=== PATIENT | male | born 1995 | race Caucasian/White ===

== ENCOUNTER 2020-03-26 12:23 | Emergency (ER) | payer SELFPAY ==
[2020-03-26 12:35] VITALS: BP 132/78; PULSE 62; RESP 16; TEMP 36.7; O2SAT 100; BMI 28.8
--- NOTE | 2020-03-26 13:24 | ED.HA ---
HPI - Headache General Chief Complaint: Headache Stated Complaint: headache,dental pain Time Seen by Provider: 03/26/20 13:24 Source: patient Mode of arrival: ambulatory Limitations: no limitations History of Present Illness HPI Narrative: toothache left upper that is going into his head MD elicited complaint: headache Onset (ago): day(s) Onset description: gradually Location: left Severity: moderate Quality & Timing: aching Related Data Previous Rx's Medication Instructions Recorded amoxicillin 500 mg PO BID #14 cap 03/26/20 naproxen [Naprosyn] 500 mg PO BID #20 tab 03/26/20 Allergies Allergy/AdvReac Type Severity Reaction Status Date / Time No Known Allergies Allergy Unverified 12/28/19 17:49 [No Known Allergies*] Review of Systems Constitutional: Constitutional: Reports no additional constitutional complaints Eyes: Eyes: Reports no additional eye complaints ENT: Denies dizziness Cardiovascular: Cardiovascular: Reports no additional cardiovascular complaints Respiratory: Respiratory: Reports as per HPI Gastrointestinal: Gastrointestinal: Reports no additional gastrointestinal complaints Musculoskeletal: Musculoskeletal: Reports no additional musculoskeletal complaints Integumentary/Breasts: Skin/Breast: Denies rash Neurologic: Reports system reviewed and no additional complaints, except as documented, Denies dizziness and Denies Sensory deficit (Neuro) Psychiatric: Psychiatric: Denies anxiety [facility] Social History Social History Advance Directives: No Advance Directives Information Provided: No Physical Exam Vital Signs: Vital Signs: Last Vital Signs Temp 98.0 F 03/26/20 12:35 Pulse 62 03/26/20 12:35 Resp 16 03/26/20 12:35 BP 132/78 03/26/20 12:35 Pulse Ox 100 03/26/20 12:35 Body Mass Index 28.8 Const: General: healthy appearing Nutritional Appearance: average body habitus Orientation/consciousness: oriented to person and patient oriented x3 Limitations: no limitations HENMT: Head: Yes normal to inspection Ears: external ears normal General nose exam: Normal external nose present Mouth: Normal oral and palatal mucosa present and oropharynx normal Teeth and gingiva: other (poor dentition with severe dental caries) Throat: Yes posterior oropharynx normal Eyes: General: appearance normal, both eyes and all related structures Neck: Other: supple Neck: Yes normal visual inspection Chest: Chest palpation & inspection: normal inspection of the chest Resp: Auscultation: clear to auscultation bilaterally Cardio: Jugular venous distension: no JVD Rate: regular rate Rhythm: regular rhythm Heart sounds: S1 normal heart sound present and S2 normal heart sound present GI: Inspection: Yes normal to inspection Palpation (GI): Soft to palpation, nontender and No hepatosplenomegaly present Auscultation: normal bowel sounds : General: Yes no CVA tenderness Back/Spine/Pelvis: Back: no CVA tenderness Skin: General skin exam: no rashes or lesions noted Neuro: General: oriented to person and patient oriented x3 Cranial nerves: Yes CN's II-XII intact bilaterally Motor exam (neuro): 5/5 motor strength present throughout Sensory Exam: No Sensory deficit (Neuro) Extrem: General: Yes normal to inspection Psych: Appearance: grossly normal Course Course Course Narrative: Patient with dental caries and infection will dc with follow up for dentist MDM - Headache MDM Narrative Medical decision making narrative: dental caries, dental abscess Differential Diagnosis Differential diagnosis: Likely headache Discharge Plan Discharge Clinical Impression: Dental caries, Chronic dental infection Headache Qualifiers: Headache type: other headache syndrome Qualified Code(s): G44.89 - Other headache syndrome Patient Disposition: Home, Self-Care Instructions: Toothache (ED) Prescriptions: New naproxen [Naprosyn] 500 mg tablet 500 mg PO BID Qty: 20 RF: 0 amoxicillin 500 mg capsule 500 mg PO BID Qty: 14 RF: 0
[2020-03-26] MEDS: Ketorolac Tromethamine 60 MG/2 ML VIAL IM (14:18)
[2020-03-26] MEDS: Amoxicillin 500 MG CAPSULE PO (14:18)
== END 2020-03-26 14:23 | disposition home or self-care (01) ==
PROVIDERS: Emergency Provider Emergency Medicine
DX: K02.9 Dental caries, unspecified (principal); G44.89 Other headache syndrome
CPT/HCPCS: 96372; 99283; 99284; J1885

== ENCOUNTER 2020-04-06 12:17 | Emergency (ER) | payer OTHER, SELFPAY ==
[2020-04-06 12:42] VITALS: BP 127/57; PULSE 85; RESP 16; TEMP 36.6; O2SAT 99; BMI 28.8
--- NOTE | 2020-04-06 12:49 | ED_ITS ---
HPI - General Adult General Chief complaint: General Medical Stated complaint: covid exposure Time Seen by Provider: 04/06/20 12:39 Source: patient Mode of arrival: ambulatory Limitations: no limitations History of Present Illness HPI narrative: With family member on [address] [place] they called him today told him that they tested positive for COVID he came for COVID past reports that he has slight runny nose otherwise no other symptoms. Here with multiple other family members. Associated symptoms: denies other symptoms Treatments prior to arrival: none Related Data Previous Rx's Medication Instructions Recorded amoxicillin 500 mg PO BID #14 cap 03/26/20 naproxen [Naprosyn] 500 mg PO BID #20 tab 03/26/20 Allergies Allergy/AdvReac Type Severity Reaction Status Date / Time No Known Allergies Allergy Unverified 12/28/19 17:49 [No Known Allergies*] Review of Systems Review of Systems: Constitutional: No Weight loss, No Fever, No Chills, No Night Sweats, No Fatigue, No Malaise ENT/Mouth: No Hearing loss, No Ear Pain, + Nasal Congestion, No Sinus Pain, No Hoarseness, No sore throat, + Rhinorrhea, No Swallowing Difficulty Eyes: No Eye Pain, No Swelling, No Redness, No Foreign Body, No Discharge, No Vision Changes Cardiovascular: No Chest Pain, No SOB, No Dyspnea on Exertion, No Orthopnea, No Edema, No Palpitations Respiratory: No Cough, No Sputum, No Wheezing, No Smoke Exposure, No Dyspnea Gastrointestinal: No Nausea, No Vomiting, No Diarrhea, No Constipation, No abdominal Pain, No Hematochezia, No Melena Genitourinary: no irregular bleeding, No Dysuria, No Urinary Frequency, No Hematuria, No Urinary Incontinence, No Urgency, No Flank Pain, No Urinary Flow Changes Musculoskeletal: No joint pain, No Myalgias, No Joint Swelling Skin: No Skin Lesions, No rash Neuro: No Weakness, No Numbness, No Paresthesias, No Loss of Consciousness, No Dizziness, No Headache Psych: No Social Issues Heme/Lymph: No Bruising, No Bleeding,No Lymphadenopathy Endocrine: No Polyuria, No Polydipsia, No Temperature Intolerance Yes all other systems are reviewed and are negative [facility] Past Medical History Medical History (Updated 04/06/20 @ 12:52 by Flakito Dodd NP) No known health problems Social History Social History Advance Directives: No Advance Directives Information Provided: No Physical Exam Vital Signs: Vital Signs: Last Vital Signs Temp 98 F 04/06/20 12:42 Pulse 85 04/06/20 12:42 Resp 16 04/06/20 12:42 BP 127/57 L 04/06/20 12:42 Pulse Ox 99 04/06/20 12:42 Body Mass Index 28.8 Reviewed Const: General: cooperative and healthy appearing; No acute distress or intoxicated appearing Nutritional Appearance: average body habitus Orientation/consciousness: patient oriented x3 HENMT: Head: Yes normal to inspection Ears: hearing grossly normal bilaterally Eyes: General: appearance normal, both eyes and all related structures Visual Napier: normal visual napier by confrontation Neck: Neck: Yes normal visual inspection and No tender Thyroid: Thyroid normal Chest: Chest palpation & inspection: normal inspection of the chest Resp: Effort & Inspection: normal respiratory effort Cardio: Jugular venous distension: no JVD Rhythm: regular rhythm Heart sounds: S1 normal heart sound present and S2 normal heart sound present : General: Yes no CVA tenderness Back/Spine/Pelvis: Back: no CVA tenderness Skin: General skin exam: no rashes or lesions noted Neuro: General: patient oriented x3 Extrem: General: Yes normal to inspection Course Course Course Narrative: COVID swab done. CBC/state precautions provided, return follow-up instructions provided. Stable for discharge. Discharge Plan Discharge Clinical Impression: Upper respiratory infection Patient Disposition: Home, Self-Care Additional Instructions: Based on your symptoms and history we have sent a COVID-19. Although your RESULT IS PENDING at this time. RESULTS should return within 72 hours. At this time you will be contacted with either NEGATIVE OR POSITIVE results. -Please wait until we contact you for your results. At this time you will be okay for discharge. Please plan for self quarantine for up to 14 days. Do not expose yourself to others. You may not go to work. If testing does come back negative you may return to activities as long as you are no longer having any symptoms for at least 3 days. Please continue to follow cold instructions and wash your hands frequently. You may take Tylenol as directed on the bottle for pain or fever. Patient seen in the emergency department and should be excused from work until negative test results AND until 72 hours without any symptoms AND at least 10 days have passed since symptoms first appeared or since last exposure to COVID- 19 positive patient CDC Guidelines for home isolation: - Stay away from others - WEAR A MASK if you are sick AND STAY HOME - Cover your mouth and nose with a tissue when you cough or sneeze. Dispose of tissues in a lined trash can and wash your hands immediately with soap and water for at least 20 seconds. If soap and water are not available, clean hands with alcohol-based hand tube puller that contains at least 60% alcohol. - Clean your hands often with soap and water for at least 20 seconds - Avoid touching your eyes, nose and mouth with unwashed hands - Do not share dishes, drinking glasses, cups, eating utensils, towels, or bedding with other people in your home. After using these items, wash them thoroughly with soap and water or put in the forensic identification specialist. - Clean high-touch surfaces in your isolation area ( sick room and bathroom) every day; let a caregiver clean and disinfect high-touch surfaces in other areas of the home. Clean the area or item with soap and water or another detergent if it is dirty. Then, use a household disinfectant. - Limit contact with pets and animals: If you must care for a pet, wash your hands before and after interacting with them Prescriptions: No Action naproxen [Naprosyn] 500 mg tablet 500 mg PO BID Qty: 20 RF: 0 amoxicillin 500 mg capsule 500 mg PO BID Qty: 14 RF: 0 Referrals: [facility] [Primary Care Provider] - 1 week (Phone visit)
== END 2020-04-06 13:02 | disposition home or self-care (01) ==
PROVIDERS: Nurse Practitioner Primary Care; Emergency Provider Emergency Medicine Emergency Medical Services
DX: U07.1 COVID-19 (principal)
CPT/HCPCS: 99283; U0003

== ENCOUNTER 2020-06-26 11:33 | Outpatient (REF) | payer OTHER, SELFPAY | END 2020-06-26 11:34 | disposition home or self-care (01) | LOC: HO.LAB 11:33 | PROVIDERS: Visit Provider Internal Medicine | DX: Z20.822 Contact with and (suspected) exposure to COVID-19 (principal) | CPT/HCPCS: 36415; C9803; U0003; U0005 ==

== ENCOUNTER 2020-07-25 17:07 | Emergency (ER) | payer OTHER, SELFPAY ==
[2020-07-25 17:38] VITALS: BP 108/60; PULSE 62; RESP 18; TEMP 36.8; O2SAT 98; BMI 35.9
[2020-07-25 18:49] LABS: Glucose Urine UA NEG (NEG); Leukocyte Esterase Urine NEG (NEG); Nitrite Urine NEG (NEG); PH 7.5 (5.0-8.0); Specific Gravity - Urine 1.015 (1.005-1.025); Urine Blood NEG (NEG); Urine Ketones 5 MG/DL (NEG); Urine Protein NEG (NEG-TRACE)
[2020-07-25 18:50] LABS: Appearance Urine CLEAR; Color Urine YELLOW
--- NOTE | 2020-07-25 19:56 | ED.MALEGU ---
HPI - Male Genitourinary General Chief complaint: Urogenital-Male Stated complaint: ?uti Time Seen by Provider: 07/25/20 19:56 Source: patient Mode of arrival: ambulatory Limitations: no limitations History of Present Illness HPI Narrative: States burning-like discomfort to the tip of the penis for past several days No testicular pain, penile discharge Onset (ago): day(s) Duration: intermittent Location: penis Severity: mild Relieving factors: none Exacerbating factors: none Associated symptoms: Reports denies other symptoms Related Data Previous Rx's Medication Instructions Recorded amoxicillin 500 mg PO BID #14 cap 03/26/20 naproxen [Naprosyn] 500 mg PO BID #20 tab 03/26/20 doxycycline monohydrate 100 mg PO BID 7 Days #14 cap 07/25/20 Allergies Allergy/AdvReac Type Severity Reaction Status Date / Time No Known Allergies Allergy Verified 07/25/20 17:38 [No Known Allergies*] Review of Systems Review of Systems: Constitutional: No Weight loss, No Fever, No Chills, No Night Sweats, No Fatigue, No Malaise ENT/Mouth: No Hearing loss, No Ear Pain, No Nasal Congestion, No Sinus Pain, No Hoarseness, No sore throat, No Rhinorrhea, No Swallowing Difficulty Eyes: No Eye Pain, No Swelling, No Redness, No Foreign Body, No Discharge, No Vision Changes Cardiovascular: No Chest Pain, No SOB, No Dyspnea on Exertion, No Orthopnea, No Edema, No Palpitations Respiratory: No Cough, No Sputum, No Wheezing, No Dyspnea Gastrointestinal: No Nausea, No Vomiting, No Diarrhea, No Constipation, No abdominal Pain, No Hematochezia, No Melena Genitourinary: no irregular bleeding, + Dysuria, No Urinary Frequency, No Hematuria, No Urinary Incontinence, No Urgency, No Flank Pain, No Urinary Flow Changes, No Hesitancy Musculoskeletal: No joint pain, No Myalgias, No Joint Swelling Skin: No Skin Lesions, No rash Neuro: No Weakness, No Numbness, No Paresthesias, No Loss of Consciousness, No Dizziness, No Headache Psych: No Social Issues Heme/Lymph: No Bruising, No Bleeding,No Lymphadenopathy Endocrine: No Polyuria, No Polydipsia, No Temperature Intolerance Yes all other systems are reviewed and are negative PMFSH Past Medical History Medical History No known health problems Social History Social History Smoked in Last 30 Days: No Substance Use Type: Marijuana Advance Directives: No Advance Directives Information Provided: No Physical Exam Vital Signs: Vital Signs: Last Vital Signs Temp 98.3 F 07/25/20 17:38 Pulse 62 07/25/20 17:38 Resp 18 07/25/20 17:38 BP 108/60 07/25/20 17:38 Pulse Ox 98 07/25/20 17:38 Body Mass Index 35.9 Reviewed Const: General: cooperative and healthy appearing; No acute distress or intoxicated appearing Nutritional Appearance: average body habitus Orientation/consciousness: patient oriented x3 HENMT: Head: Yes normal to inspection Ears: hearing grossly normal bilaterally Resp: Effort & Inspection: normal respiratory effort Auscultation: clear to auscultation bilaterally Cardio: Rhythm: regular rhythm Heart sounds: S1 normal heart sound present and S2 normal heart sound present GI: Inspection: Yes normal to inspection Palpation (GI): Soft to palpation Percussion: Yes normal to percussion Auscultation: normal bowel sounds : General: Yes no CVA tenderness Male General Exam: Yes normal external exam Penis: uncircumcised, no condylomata, no ecchymosis, not erythematous, no masses, no nodules, no papules, no pustules, no vesicles and other (Slight irritation to the glans of the penis with very minimal curd like) Back/Spine/Pelvis: Back: no CVA tenderness Skin: General skin exam: no rashes or lesions noted Neuro: General: patient oriented x3 Extrem: General: Yes normal to inspection Course Course Course Narrative: AP is consistent with balanitis he is uncircumcised otherwise no penile lesion no testicular pain he adamantly denies any concern for STI he is okay with empirically getting treated/tested. Educated on proper penile care for uncircumcised males. He will abstain from any sexual activity until he is cleared. Given given 500 mg of ceftriaxone IM with lidocaine and doxy empirically. MDM - Male Genitourinary Lab Data Labs: Lab Results 07/25/20 Range/Units 18:22 Urine Color YELLOW Urine Appearance CLEAR Urine pH 7.5 (5.0-8.0) Ur Specific [place] 1.015 (1.005-1.025) Urine Protein NEG (NEG-TRACE) MG/DL Urine Glucose (UA) NEG (NEG) MG/DL Urine Ketones 5 (NEG) MG/DL Urine Blood NEG (NEG) Urine Nitrite NEG (NEG) Ur Leukocyte Esterase NEG (NEG) Discharge Plan Discharge Clinical Impression: Balanitis Patient Disposition: Home, Self-Care Instructions: [place] (ED) Additional Instructions: Clean the penis every day. Do not use soap or bubble bath or anything that could act as an irritant. After peeing, dry underneath the foreskin gently. Instead of soap, use an emollient (these can be purchased [id number] or online). Take medication as prescribed Return if any concerns or worsening symptoms Follow-up with the [facility] for full panel testing as discussed Thank you Prescriptions: New doxycycline monohydrate 100 mg capsule 100 mg PO BID 7 Days Qty: 14 RF: 0 No Action naproxen [Naprosyn] 500 mg tablet 500 mg PO BID Qty: 20 RF: 0 amoxicillin 500 mg capsule 500 mg PO BID Qty: 14 RF: 0 Referrals: Physician,None [Primary Care Provider] - 2 days ([facility])
[2020-07-25] MEDS: cefTRIAXone sodium 500 MG, Lidocaine HCl 1 % MPF 1 ML IM (20:19)
[2020-07-26 10:03] LABS: CT PCR DETECTED (Not Detect.); NG PCR NOT DETECTED (Not Detect.)
== END 2020-07-25 20:11 | disposition home or self-care (01) ==
PROVIDERS: Nurse Practitioner Primary Care; Emergency Provider Internal Medicine
DX: N48.1 Balanitis (principal); R30.0 Dysuria; R36.9 Urethral discharge, unspecified; F12.90 Cannabis use, unspecified, uncomplicated; Z79.899 Other long term (current) drug therapy; Z20.2 Contact with and (suspected) exposure to infections with a predominantly sexual mode of transmission
CPT/HCPCS: 81003; 87491; 87591; 96372; 99284; J0696

== ENCOUNTER 2021-03-11 11:11 | Outpatient (REF) | payer OTHER, SELFPAY ==
[2021-03-11 11:54] LABS: COVID-19 Test Negative (Negative)
== END 2021-03-11 11:12 | disposition home or self-care (01) ==
LOC: HO.LAB 11:11
PROVIDERS: Visit Provider Internal Medicine
DX: Z20.822 Contact with and (suspected) exposure to COVID-19 (principal)
CPT/HCPCS: 36415; 87635; C9803

== ENCOUNTER 2022-04-10 14:11 | Emergency (ER) | payer MEDICAID, SELFPAY | END 2022-04-10 18:39 | disposition left against medical advice (07) | PROVIDERS: Emergency Provider Emergency Medicine | DX: M54.6 Pain in thoracic spine (principal) ==

== ENCOUNTER 2023-05-11 10:34 | Emergency (ER) | payer MEDICAID, SELFPAY ==
[2023-05-11 10:37] VITALS: BP 112/70; PULSE 81; RESP 19; TEMP 36.6; O2SAT 99; BMI 36.0
[2023-05-11 11:07] LABS: COVID-19 Test Negative (Negative); IDNOW Serial# 08D9AD1C
[2023-05-11 11:08] LABS: IDNOW Serial# 152EDE1D
[2023-05-11 11:09] LABS: Influenza A Positive (Negative); Influenza B2 Negative (Negative)
--- NOTE | 2023-05-11 11:23 | ED.GENADULT ---
HPI - General Adult General Chief complaint: Upper Respiratory Symptoms Stated complaint: headache,fever,cough Time Seen by Provider: 05/11/23 11:23 Source: patient, RN notes reviewed and old records reviewed Mode of arrival: ambulatory Limitations: no limitations History of Present Illness HPI narrative: 27-year-old healthy male presents for evaluation of fevers, chills, body aches. He also complains of a headache. He reports an exposure to a sick contact tested positive for the flu. His vital signs are stable on arrival No other complaints or concerns at this time Related Data Previous Rx's Medication Instructions Recorded amoxicillin 500 mg capsule 500 mg PO BID #14 caps 03/26/20 naproxen 500 mg tablet (Naprosyn) 500 mg PO BID #20 tabs 03/26/20 doxycycline monohydrate 100 mg 100 mg PO BID 7 days #14 caps 07/25/20 capsule oseltamivir 75 mg capsule (Tamiflu) 75 mg PO BID 5 days #10 caps 05/11/23 Allergies Allergy/AdvReac Type Severity Reaction Status Date / Time No Known Allergies Allergy Verified 05/11/23 10:37 [No Known Allergies*] Review of Systems Constitutional: Constitutional: Reports body ache(s), Reports chills, Reports fever(s) and Reports headache(s) ENT: Reports headache(s) and Denies sore throat Cardiovascular: Cardiovascular: Denies chest pain Respiratory: Respiratory: Reports cough Musculoskeletal: Musculoskeletal: Reports back pain Integumentary/Breasts: Skin/Breast: Denies rash Neurologic: Reports headache(s) PMFSH Past Medical History Medical History No known health problems Social History Social History Smoked in Last 30 Days: No Use of substances other than those prescribed or required for medical reasons: Yes Substance Use Type: Marijuana Substance Use Frequency: Daily Advance Directives: No Physical Exam ED Vital Signs: Vital Signs - 24 hr 05/11/23 10:37 Temperature 98 F Pulse Rate 81 Respiratory Rate 19 Blood Pressure 112/70 Pulse Oximetry 99 Oxygen Delivery Method Room Air BMI result Body Mass Index 36.0 Const General: healthy appearing, comfortable, no acute distress, alert and awake Nutritional Appearance: well nourished Orientation/consciousness: patient oriented x3 HENMT Head: Yes normocephalic and Yes atraumatic Eyes Eyelids: Yes eyelids normal Conjunctivae: conjunctivae normal Sclerae: sclerae normal Corneas: corneas normal Pupils: Equal, round and reactive pupils present EOM: EOMs intact bilaterally Neck Neck: Yes full ROM Resp Effort & Inspection: normal respiratory effort, able to speak in complete sentences and not labored Skin General skin exam: no rashes or lesions noted and elasticity normal Neuro General: patient oriented x3 Cranial nerves: Yes Equal, round and reactive pupils present and Yes Bilaterally intact EOM present Cognition (Neuro): normal cognition Extrem Other: Moving all extremities well without any obvious deformities Medical Decision Making Medical Decision Making MDM Narrative: 27-year-old healthy male presents for evaluation of flu-like symptoms. He reports having a positive influenza contact. The patient was swab for influenza and tested positive. His symptoms started yesterday, and therefore he is within the window for Tamiflu treatment. He is stable for discharge at this time Differential Diagnosis Differential Diagnoses: The differential diagnosis associated with the presentation includes Influenza COVID-19 Viral syndrome Upper respiratory infection Bronchitis Pneumonia Lab Data Labs: Lab Results 05/11/23 Range/Units 10:44 COVID-19 ([place]) Negative (Negative) COVID-19 Clin Com See Note Influenza Type A ([place]) Positive A (Negative) Influenza Type B ([place]) Negative (Negative) Influenza A & B Note See Note Discharge Plan Discharge Clinical Impression: Influenza Patient Disposition: Home, Self-Care Instructions: Influenza (ED) Additional Instructions: You tested positive for the flu. Use Motrin/Tylenol for fevers, body aches Take Tamiflu twice daily for 5 days Drink lots of fluids Follow-up your primary doctor Prescriptions: New oseltamivir [Tamiflu] 75 mg capsule 75 mg PO BID 5 Days Qty: 10 0RF No Action naproxen [Naprosyn] 500 mg tablet 500 mg PO BID Qty: 20 0RF amoxicillin 500 mg capsule 500 mg PO BID Qty: 14 0RF doxycycline monohydrate 100 mg capsule 100 mg PO BID 7 Days Qty: 14 0RF Stand Alone Forms: Work/School Release Interventions: ED Discharge Assessment Last Done: 05/11/23 11:33 Discharge Date/Time: 05/11/23 11:27
== END 2023-05-11 11:27 | disposition home or self-care (01) ==
PROVIDERS: Emergency Provider Emergency Medicine Emergency Medical Services
DX: J10.1 Influenza due to other identified influenza virus with other respiratory manifestations (principal); R51.9 Headache, unspecified; R50.9 Fever, unspecified; R05.9 Cough, unspecified; Z79.899 Other long term (current) drug therapy; Z11.52 Encounter for screening for COVID-19
CPT/HCPCS: 87502; 87635; 99283; 99284

== ENCOUNTER 2023-07-24 11:35 | Emergency (ER) | payer MEDICAID, SELFPAY ==
[2023-07-24 11:46] VITALS: BP 129/71; PULSE 92; RESP 16; TEMP 36.7; O2SAT 100; BMI 33.4
--- NOTE | 2023-07-24 11:46 | ED_ITS ---
HPI - General Adult General Chief complaint: Skin/Abscess/Foreign Body Stated complaint: pimple Time Seen by Provider: 07/24/23 12:18 Source: patient Mode of arrival: ambulatory Limitations: no limitations History of Present Illness HPI narrative: Patient is a 28-year-old male presenting to the emergency department with complaint of pain and swelling to right buttock for the past 2 days. He denies any spontaneous drainage. Denies history of same in the past. Denies any fevers, chills, body aches. Has not taken any [id number]-hlg-vwdmmnx medications or done any other treatment. complaint: Abscess Onset (ago): day(s) Location: buttocks and right Quality: aching Associated symptoms: denies other symptoms Treatments prior to arrival: none Related Data Previous Rx's ?Medication ?Instructions ?Recorded amoxicillin 500 mg capsule 500 mg PO BID #14 caps 03/26/20 naproxen 500 mg tablet (Naprosyn) 500 mg PO BID #20 tabs 03/26/20 doxycycline monohydrate 100 mg 100 mg PO BID 7 days #14 caps 07/25/20 capsule oseltamivir 75 mg capsule (Tamiflu) 75 mg PO BID 5 days #10 caps 05/11/23 cephalexin 500 mg capsule 500 mg PO QID #28 caps 07/24/23 Allergies Allergy/AdvReac Type Severity Reaction Status Date / Time No Known Allergies Allergy Verified 07/24/23 11:49 [No Known Allergies*] Review of Systems 2 Review of Systems: As per HPI. Yes all other systems are reviewed and are negative Constitutional: Constitutional: Reports as per HPI [facility] Past Medical History Medical History No known health problems Social History Social History Smoked in Last 30 Days: No Use of substances other than those prescribed or required for medical reasons: Yes Substance Use Type: Marijuana Advance Directives: No Advance Directives Information Provided: No Physical Exam ED Vital Signs: Vital Signs - 24 hr 07/24/23 11:46 Temperature 98.1 F Pulse Rate 92 Respiratory Rate 16 Blood Pressure 129/71 Pulse Oximetry 100 Oxygen Delivery Method Room Air BMI result Body Mass Index 33.4 Vital signs have been reviewed and appear to be correct. Blood pressure normal. Heart rate normal. Respiratory rate normal. Temperature normal. Oxygen saturation normal. Const General: cooperative, healthy appearing and no acute distress Orientation/consciousness: oriented to person, oriented to place, oriented to time and patient oriented x3 Limitations: no limitations HENMT Head: Yes normocephalic and Yes atraumatic Ears: external ears normal General nose exam: Normal external nose present Face and sinus: Yes face symmetric Mouth: oropharynx normal and moist mucous membranes Throat: Yes uvula midline Eyes Pupils: Equal, round and reactive pupils present Neck Neck: Yes normal visual inspection and Yes supple Resp Effort & Inspection: normal respiratory effort and able to speak in complete sentences Auscultation: clear to auscultation bilaterally Cardio Rate: regular rate Rhythm: regular rhythm Heart sounds: S1 normal heart sound present and S2 normal heart sound present GI Palpation (GI): Soft to palpation and nontender Auscultation: normoactive bowel sounds General: Yes no CVA tenderness Back/Spine/Pelvis Back: no CVA tenderness Skin General skin exam: elasticity normal and turgor normal Full body images: 2 1. fluctuant abscess which spontaneously drained during exam Neuro General: oriented to person, oriented to place, oriented to time, patient oriented x3, moves all extremities, no focal motor deficits and CN's II-XI intact bilaterally Cranial nerves: Yes Equal, round and reactive pupils present Cognition (Neuro): normal cognition Extrem General: Yes full ROM, Yes no pedal edema and Yes no calf tenderness Psych Mental Status: mental status grossly normal Affect: normal affect Thought process: Normal thought process present Course Course Course Narrative: This is an RME: Additional HPI, ROS, PE not included below will be deferred to primary provider. This is a [id number]xf[age]-male, with no known medical problems, who presents to the ER with complaints of ?abscess vs pionidal cyst x 2 days. Reporting no fevers. No drainage from the area. No hx of similar symptoms in the past. Tender, fluctuant region on the right gluteal cleft, likely needing I&D Plan: Further ER evaluation needed Medical Decision Making Medical Decision Making MDM Narrative: Patient is a 28-year-old male presenting to the emergency department with complaint of pain and swelling to right buttock for the past 2 days. On exam patient is awake, A+Ox3, VS WNL, afebrile, normal neurological exam without focal deficits, physical exam findings as above. Given reported symptoms and physical exam findings, initial differential includes abscess, pilonidal cyst. Abscess noted to spontaneously drain during exam, moderate amount of purulent drainage removed. Patient instructed to cover the area with dry sterile dressings, perform Sitz baths, Tylenol and ibuprofen for discomfort, assess area daily. Will treat patient with course of Keflex. Will refer patient to surgery for any recurrence of symptoms. Return precautions discussed at bedside. Patient verbalized understanding of and agreement with plan. Differential Diagnosis Differential Diagnoses: The differential diagnosis associated with the presentation includes As per MDM. External Record Review External record reviewed: Inpatient record, Office record and Outpatient record Prescription Management I considered prescription management with: Antibiotic Discharge Plan Discharge Clinical Impression: Abscess of buttock, right Patient Disposition: Home, Self-Care Instructions: Abscess (ED), Abscess Follow-up (ED) Additional Instructions: You were evaluated in the ER for an abscess. Please keep the area surrounding the abscess clean and dry. You were given a prescription for antibiotics, please take the antibiotics as directed for the full course of the medication. We also recommend that you take warm baths with salt water to soak the area. You should perform a skin check of the area daily. If the abscess progresses you may have to have the abscess incised and drained. You can use Tylenol or ibuprofen per package directions as needed for pain. If necessary, you can alternate these medications so that you take one medication every 3 hours. For instance, at noon take ibuprofen, then at 3:00 p.m. take Tylenol, then at 6:00 p.m. take ibuprofen. Please schedule an appointment with your primary care physician as soon as possible for follow-up. Return to the emergency department if you experience fevers greater than 100.4? F, increased in area of redness or swelling, increasing amount of discharge from the area, increased tenderness around the area, or any other concerning symptoms. If the swelling reoccurs, you may need to be evaluated by surgery. Prescriptions: New cephalexin 500 mg capsule 500 mg PO QID Qty: 28 0RF No Action naproxen [Naprosyn] 500 mg tablet 500 mg PO BID Qty: 20 0RF amoxicillin 500 mg capsule 500 mg PO BID Qty: 14 0RF doxycycline monohydrate 100 mg capsule 100 mg PO BID 7 Days Qty: 14 0RF oseltamivir [Tamiflu] 75 mg capsule 75 mg PO BID 5 Days Qty: 10 0RF Referrals: [facility] [Provider Group] Print Language: Turkmen
[2023-07-24 13:34] VITALS: BP 120/60; PULSE 66; RESP 18; TEMP 36.8; O2SAT 98
== END 2023-07-24 13:35 | disposition home or self-care (01) ==
PROVIDERS: Emergency Provider Emergency Medicine Emergency Medical Services
DX: L02.31 Cutaneous abscess of buttock (principal); R23.8 Other skin changes
CPT/HCPCS: 10060; 99283; 99284

== ENCOUNTER 2024-06-24 07:36 | Emergency (ER) | payer MEDICAID, SELFPAY ==
[2024-06-24 07:40] VITALS: BP 126/66; PULSE 85; RESP 18; TEMP 37.1; O2SAT 98; BMI 37.2
--- NOTE | 2024-06-24 08:07 | ED.SKABFB ---
HPI - Skin/Abscess/Foreign Bdy General Chief complaint: Skin/Abscess/Foreign Body Stated complaint: cyst Time Seen by Provider: 06/24/24 07:58 Source: patient Mode of arrival: ambulatory Limitations: no limitations History of Present Illness ED Provider: Ronni Christian PA-C HPI narrative: 28 yo male presents to the ER for evaluation of a recurrent pilonidal cyst. He reports pain and swelling for the last 2 days. the reports tenderness and a bump on the right side in the pilonidal area. no drainage. no fevers. he reports this is his 2nd episode and the 1st time was last summer when he had I&D and was put on abx with resolution. MD complaint: abscess/boil Onset (ago): day(s) (2) Tetanus up to date: yes Location: buttocks Severity: moderate Severity scale (1-10): 5 Quality: aching Pain Consistency: intermittent Relieving factors: rest Exacerbating factors: other (sitting) Context: none Treatments prior to arrival: none Related Data Previous Rx's ?Medication ?Instructions ?Recorded amoxicillin 500 mg capsule 500 mg PO BID #14 caps 03/26/20 naproxen 500 mg tablet (Naprosyn) 500 mg PO BID #20 tabs 03/26/20 doxycycline monohydrate 100 mg 100 mg PO BID 7 days #14 caps 07/25/20 capsule oseltamivir 75 mg capsule (Tamiflu) 75 mg PO BID 5 days #10 caps 05/11/23 cephalexin 500 mg capsule 500 mg PO QID #28 caps 07/24/23 cephalexin 500 mg capsule 500 mg PO Q6H 7 days #28 caps 06/24/24 Allergies Allergy/AdvReac Type Severity Reaction Status Date / Time No Known Allergies Allergy Verified 06/24/24 07:42 [No Known Allergies*] Review of Systems Review of Systems: Yes all other systems are reviewed and are negative PMFSH Past Medical History Medical History No known health problems Social History Social History (System 06/19/24 @ 16:35 by Ashley Gil) Smoked in Last 30 Days: Yes Use of substances other than those prescribed or required for medical reasons: Yes Substance Use Type: Marijuana Substance Use Frequency: Daily Advance Directives: No Advance Directives Information Provided: No Physical Exam Vital Signs: Vital Signs: Last Vital Signs Temp 98.7 F 06/24/24 07:40 Pulse 85 06/24/24 07:40 Resp 18 06/24/24 07:40 BP 126/66 06/24/24 07:40 Pulse Ox 98 06/24/24 07:40 O2 Del Method Room Air 06/24/24 07:40 BMI result Body Mass Index 37.2 Appearance: Alert. Oriented X3. No acute distress. HEENT: normal inspection CVS: Normal heart rate and rhythm. Pulses normal. Respiratory: No respiratory distress. Skin: Skin warm and dry. Normal skin color. Normal skin turgor. gluteal cleft on the right side with a 2cm area of tenderness and fluctuance, mild erythema, no induration Extremities: normal inspection x4, no peripheral edema Neuro: Oriented X 3. grossly normal, non-focal Medications Administered Discontinued Medications Generic Name Dose Route Start Last Admin Trade Name Freq PRN Reason Stop Dose Admin Lidocaine HCl 5 ml 06/24/24 08:21 06/24/24 08:31 Lidocaine Hcl 1 % Mpf 5 Ml Vial SUBCUT 06/24/24 08:22 5 ml ONCE ONE Administration Medical Decision Making Medical Decision Making MDM Narrative: 28 yo male presenting for evaluation of a painful pilonidal cyst for the last 2 days. History of the same last year. Examination consistent with an inflamed pilonidal cyst that is amenable to drainage. Patient tolerated procedure well and a moderate amount of foul-smelling, dark yellow purulent material was expressed. Small amount of iodoform packing was placed. Patient counseled to remove the packing in 2 days. Also advised to follow-up with general surgery for evaluation of possible cyst excision. Will provide antibiotic. Stable for discharge home. Return precautions were discussed. Differential Diagnosis Differential Diagnoses: The differential diagnosis associated with the presentation includes pilonidal cyst, abscess, cellulitis, perirectal abscess External Record Review External record reviewed: Prior outpatient labs Prescription Management I considered prescription management with: Pain Medication and Antibiotic Chronic Conditions Patient?s care impacted by: Other (Recurrent pilonidal cyst, obesity) Procedures Abscess I/D Site: avinash-rectal (pilonidal ) Local Anesthetic: lidocaine 1% Amount of anesthesia used (mL): 1 Technique: incised with blade Sent for culture/gram staining?: No Irrigation: Yes Packing used?: iodoform Critical Care Time Critical Care Time Critical Care Time: No Discharge Plan Discharge Clinical Impression: Pilonidal cyst Patient Disposition: Home, Self-Care Instructions: Pilonidal Cyst (ED), Pilonidal Cyst Excision (DC) Additional Instructions: Take the prescribed antibiotics as directed, complete the entire course and do not miss any doses Remove the packing in 2 days, you can do this at home or come back and we will do it for you Recommend general surgery evaluation in the office for evaluation of excision If you develop new or worsening symptoms call 911 or come back to the ER for further evaluation. Prescriptions: New cephalexin 500 mg capsule 500 mg PO Q6H 7 Days Qty: 28 0RF No Action naproxen [Naprosyn] 500 mg tablet 500 mg PO BID Qty: 20 0RF amoxicillin 500 mg capsule 500 mg PO BID Qty: 14 0RF doxycycline monohydrate 100 mg capsule 100 mg PO BID 7 Days Qty: 14 0RF cephalexin 500 mg capsule 500 mg PO QID Qty: 28 0RF oseltamivir [Tamiflu] 75 mg capsule 75 mg PO BID 5 Days Qty: 10 0RF Referrals: [facility] [place] [facility] [Provider Group] Print Language: Arabic
--- OUTSIDE RECORDS SUMMARY | 2024-06-24 08:11 | XMS_ITS | Clinical Summary ---
Author Organization [facility] Address [address] [place] [address] Care Team Providers Care Judicial Registrar Name Role Phone Dominique Morales NP Primary Care Provider Karly medeiros Encounters Date Type Department Care Team Description 06/23/2024 Population Health Risk Score [facility] (C3) Department [address] [facility][NOTE 3] [address] [place] [id number] Provider, Population Health Generic from Last 3 Months Social History Tobacco Use Types Packs/Day Years Used Date Smoking Tobacco: Never Assessed Sex and Gender Information Value Date Recorded Sex Assigned at Male 02/09/2022 10:35 AM EDT Legal Sex Male 10:35 AM EDT Gender Identity Male 02/09/2022 10:35 AM EDT Sexual Orientation Straight 02/09/2022 10 :35 AM EDT Plan of Treatment Health Maintenance Due Date Last Done Comments Depression Screening 1996 HIV Screening 1996 Alcohol/Substance Use Screening 2008 Tobacco Screening 2008 Family Planning (PISQ) 07/21/2011 Hepatitis C Screening 2014 DTaP/Tdap/Td Vaccines (1 - Tdap) 07/21/2015 Hepatitis B Vaccines (1 of 3 - 19+ 3-dose series) 07/21/2015 COVID-19 Vaccine ( - 2023-2 5 season) 2023 Influenza Vaccine (#1) 2023 Zoster Vaccines (1 of 2) 2046 RSV Patients and Pa tients Aged 60 years or older (1 - 1-dose 75+ series) 07/21/2071 HIB Vaccines Aged Out No longer eligi ble based on patient's age to complete this topic HPV Vaccines Aged Out No longer eligi ble based on patient's age to complete this topic Hepatitis A Vaccines Aged Out No long er eligible based on patient's age to complete this topic IPV Vaccines Aged Out No longer eligi ble based on patient's age to complete this topic Meningococcal Vaccine Aged Out No tiffany alejandro eligible based on patient's age to complete this topic Pneumococcal Vaccine: Pediat rics (0 to 5 Years) and At-Risk Patients (6 to 49) Years) Aged Out No longer eligible b ased on patient's age to complete this topic RSV under 20 months Aged Out No longe r eligible based on patient's age to complete this topic Rotavirus Vaccines Aged Out No longer eligible based on patient's age to complete this topic Care Teams Judicial Registrar Relationship Specialty Start Date End Date Dominique Morales NP PCP - General Family Medicine 02/15/20
--- OUTSIDE RECORDS SUMMARY | 2024-06-24 08:11 | XMS_ITS | Clinical Summary ---
Author Organization [facility] Address [address] [place] [address] Phone Care Team Providers Care Thermal Cutter Helper Name Role Phone Unavailable Primary Care Provider Unavailabl e Immunizations Immunization Administration Dates Next Due DTaP 5 10/19/2002,02/08/1998,01/26/1998 ,1996,1996 Hep B, ped/adol 11/09/1997,1996,1996 Hib (PRP-T) 1996,1996 IPV 10/19/2002,01/26/1998,1996 ,1996 MMR 11/22/2000,02/08/1998,11/09/1997 Varicella 11/09/1997 Social History Tobacco Use Types Packs/Day Years Used Date Smoking Tobacco: Never Assessed Sex and Gender Information Value Date Recorded Sex Assigned at Not on file Legal Sex Male 4:30 PM EDT Gender Identity Not on file Sexual Orientation Not on file Plan of Treatment Health Maintenance Due Date Last Done Comments Varicella Vaccines (2 of 2 - 2-dose childhood series) 12/20/2000 11/09/1997 DTaP,Tdap,and Td Vaccines (5 - Tdap) 07/21/2007 10/19/2002, 02/08/1998, 01/26/1998, Additional history exists Consider Men B Vaccine (1 of 2 - Bexsero 2-dose series) 2012 Influenza Vaccines (#1) 2023 COVID-19 Vaccine ( season) 2023 HIB Vaccines Aged Out 1996, 1996 No lo nger eligible based on patient's age to complete this topic Hepatitis B Vaccines Completed 11/09/1997, 1996, 1996 MMR Vaccines Completed 11/22/2000, 01/12, 11/09/1997 IPV Vaccines Completed 10/19/2002, 01/10, 1996, Additional history exists HPV Vaccines Aged Out No longer eligi ble based on patient's age to complete this topic Hepatitis A Vaccines Aged Out No long er eligible based on patient's age to complete this topic Men B Vaccine Aged Out No longer elig ible based on patient's age to complete this topic Meningococcal Vaccine Aged Out No tiffany alejandro eligible based on patient's age to complete this topic Pneumococcal Vaccine Aged Out No long er eligible based on patient's age to complete this topic
[2024-06-24] MEDS: Lidocaine HCl 1 % MPF 5 ML VIAL SUBCUT (08:31)
[2024-06-24 09:13] VITALS: BP 00/00; PULSE 0; RESP 0; TEMP -17.7; TEMP 0; O2SAT 0
== END 2024-06-24 09:14 | disposition home or self-care (01) ==
PROVIDERS: Emergency Provider Emergency Medicine
DX: L05.91 Pilonidal cyst without abscess (principal); F12.90 Cannabis use, unspecified, uncomplicated
CPT/HCPCS: 10080; 99284; J2003

== ENCOUNTER 2024-10-30 01:21 | Emergency (ER) | payer MEDICAID, SELFPAY ==
[2024-10-30 01:24] VITALS: BP 122/70; PULSE 64; RESP 20; TEMP 36.7; O2SAT 98; BMI 35.9
[2024-10-30 02:12] LABS: Resp Syncy Virus RNA Qual PCR NEGATIVE (Negative); SARS COV2 PCR INHOUSE POSITIVE (Negative)
--- NOTE | 2024-10-30 02:16 | ED_ITS ---
HPI - General Adult General Chief complaint: Nausea/Vomiting/Diarrhea Stated complaint: vomiting Time Seen by Provider: 10/30/24 02:11 Source: patient Mode of arrival: ambulatory Limitations: no limitations History of Present Illness ED Provider: HPI narrative: Patient is presenting with nausea and vomiting from 16:00 today, sudden onset, no abdominal pain no sick contacts no diarrhea, no chest pain or shortness of breath. States it has not been able to eat anything today. Does smoke marijuana has not smoked today. This is not a recurrent issue. Related Data Previous Rx's ?Medication ?Instructions ?Recorded amoxicillin 500 mg capsule 500 mg PO BID #14 caps 03/12 08/29 naproxen 500 mg tablet (Naprosyn) 500 mg PO BID #20 ta bs 03/26/20 doxycycline monohydrate 100 mg 100 mg PO BID 7 days #1 4 caps 07/25/20 capsule oseltamivir 75 mg capsule (Tamiflu) 75 mg PO BID 5 day s #10 caps 05/11/23 cephalexin 500 mg capsule 500 mg PO QID #28 caps 07/23 cephalexin 500 mg capsule 500 mg PO Q6H 7 days #28 cap s 06/24/24 ondansetron 4 mg disintegrating 4 mg PO Q8H PRN nausea and 10/30/24 tablet vomiting #4 tabs Allergies Allergy/AdvReac Type Severity Reaction Status Date / Time No Known Allergies (No Known Allergy Verified 10/30/24 01:26 Allergies*) Review of Systems 2 Constitutional: Constitutional: Reports as per [facility] Past Medical History Medical History No known health problems Social History Social History (System 06/19/24 @ 16:35 by Ashley Gil) Smoked in Last 30 Days: No Use of substances other than those prescribed or required for medical reasons: Yes Substance Use Type: Marijuana Advance Directives: No Advance Directives Information Provided: No Physical Exam ED Vital Signs: Vital Signs - 24 hr 10/30/24 01:24 Temperature 98.0 F Pulse Rate 64 Respiratory Rate 20 Blood Pressure 122/70 Pulse Oximetry 98 Oxygen Delivery Method Room Air BMI result Body Mass Index 35.9 Const Other: * Gen: ?Overall well-appearing patient * HEENT: PERRLA, EOMI, MMM, * Neck: Supple, no LAD * CV: RRR, no obvious murmurs appreciated * Resp: ?No wheezing rales rhonchi no stridor moving air well * Abd: ?Bowel sounds are present, no tenderness no rebound no rigidity * MSK: FROM, strength 5/5 all extremities * Skin: Warm, dry, intact, * Neuro: ?Alert and oriented x3, moving upper and lower extremities symmetrically, no obvious facial asymmetry noted Medications Administered Generic Name Dose Route Start Last Admin Trade Name Freq PRN Reason Stop Dose Admin Sodium Chloride 1,000 mls @ 999 mls/hr 10/30/24 02:30 10/30/24 02:23 Ns IV 10/30/24 03:30 999 mls/hr .Q1H1M [place] Administration Discontinued Medications Generic Name Dose Route Start Last Admin Trade Name Freq PRN Reason Stop Dose Admin Diphenhydramine HCl 25 mg 10/30/24 02:16 10/30/24 02:24 Diphenhydramine Hcl 50 Mg/Ml Vial IVPUSH 10/30/24 02:17 25 mg ONCE ONE Administration Famotidine 20 mg 10/30/24 02:16 10/30/24 02:24 Famotidine/Pf 20 Mg/2 Ml Vial IVPUSH 10/30/24 02:17 20 mg ONCE ONE Administration Ondansetron HCl 4 mg 10/30/24 02:16 10/30/24 02:24 Ondansetron Hcl 4 Mg/2 Ml Vial IVPUSH 10/30/24 02:17 4 mg ONCE ONE Administration Medical Decision Making Medical Decision Making MDM Narrative: Presenting with nausea and vomiting some of the considerations for workup as below, depending on his blood work we will determine whether he needs further imaging such as ultrasound or CT thus far abdominal exam is benign. Differential Diagnosis Differential Diagnoses: The differential diagnosis associated with the presentation includes Cholecystitis, pancreatitis, hepatitis, gastritis, cholangitis, choledocholithiasis, dehydration Admission/Observation Consideration of admission/observation: Escalation of care including admission/observation considered (If patient is dehydrated or any issues such as pancreatitis) 2022 Emergency Medicine Coding Guide from [employer] on 10/30/2024 All calculations should be rechecked by clinician prior to use RESULT SUMMARY: 4 Estimated Level of Service Problems: Moderate (4) Risk: Moderate (4) Data: Minimal (2) NARRATIVE MDM: This patient's problem complexity is Moderate as patient: has a new undiagnosed problem with uncertain prognosis but that could be serious. This patient's risk is Moderate due to: overall presentation requiring evaluation for a potentially Moderate-risk process. This patient's data complexity is Minimal. INPUTS: Number and Complexity ?> 5 = 4: undiagnosed new problem, uncertain outcome (e) Risk level ?> 3 = Moderate Tests ordered ?> 1 = 1 Tests results reviewed (excluding labs) ?> 0 = 0 Prior external notes reviewed ?> 0 = 0 Assessment requiring and independent historian ?> 0 = No Independent interpretation of tests ?> 0 = No Discussed management/test interpretation w/external professional ?> 0 = No Lab Data MDM Lab Attestation statement: I reviewed the patient's lab results. 10/30/24 02:28 10/30/24 02:28 Labs: Lab Results 10/30/24 10/30/24 Range/Units 01:29 02:28 WBC 12.3 H (4.8-10.8) X10*3/uL RBC 4.52 L (4.60-5.80) X10*6/uL Hgb 13.1 L (14.0-18.0) g/dl Hct 38.9 L (42.0-52.0) % MCV 86.1 (80.0-98.0) fL MCH 29.0 (27.0-33.0) pg MCHC 33.7 (31.0-36.0) g/dl RDW 12.7 (11.0-16.0) % Plt Count 285 (160-400) X10*3/uL MPV 8.9 L (9.4-12.4) fL Immature Gran % (Auto) 0.3 (0.0-0.4) % Neut % (Auto) 78.3 H (45-73) % Lymph % (Auto) 14.0 L (20-40) % [place] % (Auto) 7.1 (2-11) % Eos % (Auto) 0.1 (0-4) % Baso % (Auto) 0.2 (0-2) % Lymph # (Auto) 1.7 (1.2-4.9) X10*3/uL [place] # (Auto) 0.9 (0.1-1.2) X10*3/uL Eos # (Auto) 0.0 (0.0-0.4) X10*3/uL Baso # (Auto) 0.0 (0.0-0.2) X10*3/uL Abs Immat Gran (auto) 0.04 H (0.00-0.03) X10*3/uL Absolute Neuts (auto) 9.6 H (2.0-8.3) x10*3/uL Absolute Nucleated RBC 0.000 (0.0-0.012) X10*3/uL Nucleated RBC % (auto) 0.0 (0.0-0.2) /100WBC Sodium 143 (135-145) mmol/L Potassium 3.6 (3.3-5.1) mmol/L Chloride 111 H (96-108) mmol/L Carbon Dioxide 23 (22-29) mmol/L Anion Gap 13 (12-20) BUN 9 (9-16) mg/dL Creatinine 0.71 (0.5-1.4) mg/dL Estim Creat Clear Calc 183.6 Estimated GFR > 60 Random Glucose 148 H (60-115) mg/dL Calcium 9.0 (8.4-10.2) mg/dL Lipase 14 (8-78) U/L Influenza Type A (PCR) NEGATIVE (Negative) Influenza Type B (PCR) NEGATIVE (Negative) RSV RNA Qual (PCR) NEGATIVE (Negative) SARS-CoV-2 RNA (RT-PCR) POSITIVE A (Negative) Discharge Plan Discharge Clinical Impression: COVID Patient Disposition: Home, Self-Care Instructions: COVID-19 (Coronavirus Disease 2019) (ED) Additional Instructions: Your workup was reassuring, but she did test positive for COVID infection, treatment is supportive, stay well hydrated, I will give her Zofran as needed for nausea and vomiting, I do not recommend any other medications for COVID such as Paxlovid as this medication is known for side effects such as nausea and vomiting and this is exactly the symptoms that you were having an UR otherwise healthy, you can take Tylenol 975 mg every 6 hours needed for body aches and fevers and I will give you a work note, make sure to not expose public to your symptoms isolate until your symptoms improve and then for the next 5 days I recommend you wear a mask Prescriptions: New ondansetron 4 mg tablet,disintegrating 4 mg PO Q8H PRN (Reason: nausea and vomiting) Qty: 4 0RF No Action naproxen [Naprosyn] 500 mg tablet 500 mg PO BID Qty: 20 0RF amoxicillin 500 mg capsule 500 mg PO BID Qty: 14 0RF doxycycline monohydrate 100 mg capsule 100 mg PO BID 7 Days Qty: 14 0RF cephalexin 500 mg capsule 500 mg PO QID Qty: 28 0RF cephalexin 500 mg capsule 500 mg PO Q6H 7 Days Qty: 28 0RF oseltamivir [Tamiflu] 75 mg capsule 75 mg PO BID 5 Days Qty: 10 0RF Stand Alone Forms: Work/School Release Print Language: French
--- NOTE | 2024-10-30 02:18 | PC.NURSE ---
pt a&ox4, respirations even and unlabored. pt reports onset of nausea and vomiting since 4pm yesterday, reports he was taking medications for his recent cavity and is unsure if that is the cause. pt vomiting at time of assessment. 20g placed in left ac. vss.
[2024-10-30 02:31] LABS: MANUAL DIFF FLAG NO
[2024-10-30 02:32] LABS: Hematocrit 38.9 % (42.0-52.0); Hemoglobin 13.1 g/dl (14.0-18.0); Imm Gran Abs Auto 0.04 X10*3/uL (0.00-0.03); Imm Gran Pct Auto 0.3 % (0.0-0.4); Lymphocytes Absolute Auto 1.7 X10*3/uL (1.2-4.9); Mean Corpuscular HGB Conc 33.7 g/dl (31.0-36.0); Mean Corpuscular Hemoglobin 29.0 pg (27.0-33.0); Mean Corpuscular Volume 86.1 fL (80.0-98.0); NRBC Abs Auto 0.000 X10*3/uL (0.0-0.012); NRBC Pct Auto 0.0 /100WBC (0.0-0.2); Platelet Count 285 X10*3/uL (160-400); Red Blood Count 4.52 X10*6/uL (4.60-5.80); White Blood Count 12.3 X10*3/uL (4.8-10.8)
[2024-10-30 02:47] LABS: Anion Gap 13 (12-20); Blood Urea Nitrogen 9 mg/dL (9-16); Calcium 9.0 mg/dL (8.4-10.2); Carbon Dioxide 23 mmol/L (22-29); Chloride 111 mmol/L (96-108); Creatinine Clr Calc Pharmacy 183.6; Estimated Glomerular Filt Rate > 60; Lipase 14 U/L (8-78); Potassium 3.6 mmol/L (3.3-5.1); Sodium 143 mmol/L (135-145)
[2024-10-30 03:39] VITALS: BP 135/78; PULSE 99; RESP 15; TEMP 37.1; O2SAT 98
== END 2024-10-30 03:40 | disposition home or self-care (01) ==
PROVIDERS: Emergency Provider Emergency Medicine
DX: U07.1 COVID-19 (principal); F12.90 Cannabis use, unspecified, uncomplicated
CPT/HCPCS: 36415; 80048; 83690; 85025; 87637; 96361; 96374; 96375; 99284; 99285; J1200; J1308; J1885; J2405